=== PATIENT | male | born 1970 | race Caucasian/White ===

== ENCOUNTER → 2017-06-09 | Outpatient (CLI) | payer OTHER | LOC: LAB.O 12:18 | PROVIDERS: ATTEND Nurse Practitioner Family | DX: I10 Essential (primary) hypertension (principal) ==

== ENCOUNTER 2017-10-06 21:31 | Inpatient (IN) | payer OTHER ==
[2017-10-06] MEDS ORDERED: methylPREDNISolone SODIUM SUC 125 MG/2 ML VIAL IV ONE (21:41)
[2017-10-06] MEDS ORDERED: SODIUM CHLORIDE 0.9% 1000ML 1,000 ML IVS ONE (22:29)
[2017-10-06] MEDS ORDERED: HYDROcodone 10MG/APAP 325MG 1 EA TAB PO ONE (22:29)
[2017-10-06] MEDS ORDERED: cefTRIAXone SODIUM 1 GM in SODIUM CHL 0.9% 50ML MIN-BAG+ 50 ML IVPB ONE (23:09)
[2017-10-06] MEDS ORDERED: cefTRIAXone SODIUM 1 GM VIAL ONE (23:22)
[2017-10-06] MEDS ORDERED: SODIUM CHL 0.9% 50ML MIN-BAG+ 50 ML IVPB ONE (23:22)
[2017-10-06] MEDS ORDERED: diphenhydrAMINE HCL 25 MG CAP PO ONE (23:40)
--- NOTE | 2017-10-06 23:50 | ED.PDOC ---
History of Present Illness - General Chief Complaint: Bite: Animal/Insect/Human Stated Complaint: Snake Bite Time Seen by Provider: 10/06/17 21:41 Source: patient Exam Limitations: no limitations - History of Present Illness Initial Comments: the patient is a 47-year-old male presenting to emergency room after having stepped off of his back porch and been bitten by a small snake on the lateral distal aspect of his left foot. There appears to be fang serra present. One on the tip of the toe and 2 on the side of the foot. he arrives approximately 15 minutes after the incident. Marking of the swelling started upon his arrival. No history of any significant allergic reactions to slight bites or bee stings in the past. He did not see what kind of snake it was however upper heads and rattlesnakes are prevalent in this area. Over the next couple of hours swelling has extended to approximately mid foot. No systemic symptoms. No vital sign instability. 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 Timing/Duration: 1/2 hour Severity: moderate Improving Factors: nothing Worsening Factors: nothing Associated Symptoms: denies symptoms Allergies/Adverse Reactions: Allergies NO KNOWN ALLERGY Allergy (Verified 10/06/17 22:13) Review of Systems - Review of Systems Constitutional: States: no symptoms reported EENTM: States: no symptoms reported Respiratory: States: no symptoms reported Cardiology: States: no symptoms reported Gastrointestinal/Abdominal: States: no symptoms reported Genitourinary: States: no symptoms reported Musculoskeletal: States: no symptoms reported Skin: States: see HPI Neurological: States: no symptoms reported Endocrine: States: no symptoms reported All other Systems: No Change from Baseline Past Medical History (General) - Patient Medical History Hx Seizures: No Hx Stroke: No Hx Dementia: No Hx Asthma: No Hx of COPD: No Hx Cardiac Disorders: No Hx Congestive Heart Failure: No Hx Pacemaker: No Hx Hypertension: Yes Hx Thyroid Disease: No Hx Diabetes: No Hx Gastroesophageal Reflux: Yes Hx Renal Disease: No Hx Cancer: No Hx of HIV: No Hx Hepatitis C: No Hx MRSA: No Surgical History: other - Vaccination History Hx Tetanus, Diphtheria Vaccination: No Hx Influenza Vaccination: No Hx Pneumococcal Vaccination: No Immunizations Up to Date: No - Social History Hx Tobacco Use: No Hx Chewing Tobacco Use: Yes Hx Alcohol Use: Yes - Occasional Hx Substance Use: No Hx Substance Use Treatment: No Hx Depression: No Feels Threatened In Home Enviroment: No Feels Threatened In a Relationship: No Hx Physical Abuse: No Hx Emotional Abuse: No Hx Suspected Abuse: No - Activities of Daily Living Hospice Agency (if applicable):: None - Female History Patient is a Female of Child Bearing Age (10 -59 yrs old): No - Triage Comment ED Triage Comment: Pt states that he was biten by unknown snake 20 minutes prior to arrival. He states that he thought it was a "hornet's nest" at first but noticed the two serra leading him to believe it is a snake bite. Family Medical History - Family History Mother Hx Family;Other: Dementia Father Hx Family Congestive Heart Failure: Yes Physical Exam - Physical Exam General Appearance: Alert, No apparent distress Eye Exam: bilateral normal Ears, Nose, Throat: hearing grossly normal, normal ENT inspection, normal pharynx Neck: full range of motion, supple Respiratory: lungs clear, normal breath sounds, no respiratory distress, no accessory muscle use Cardiovascular/Chest: normal peripheral pulses, regular rate, rhythm, no edema Peripheral Pulses: radial,right: 2+, radial,left: 2+, dorsalis pedis,right: 2+, dorsalis pedis,left: 2+ Gastrointestinal/Abdominal: non tender, soft Rectal Exam: deferred Back Exam: no CVA tenderness, no vertebral tenderness Extremity: normal range of motion, no calf tenderness, normal capillary refill, other - see history of present illness. Neurologic: management professional II-XII nml as tested, alert, normal mood/affect, oriented x 3 Skin Exam: normal color - with the exception of erythema at thesnakebite site Comments: Vital Signs - 24 hr 10/06/17 10/06/17 10/06/17 21:59 22:32 23:49 Temperature 97.3 F L 97.8 F Pulse Rate [ 99 H 85 80 Monitor] Respiratory 18 18 18 Rate Blood Pressure 152/97 135/84 140/85 [Left Arm] O2 Sat by Pulse 99 96 99 Oximetry Progress - Progress Progress: 10/06/17 23:55 the patient is a 47-year-old male presenting to the emergency room after having been bitten on the left foot by either a small rattlesnake or a copperhead. The patient has been monitored for almost 3 hours at this point. Swelling has extended to approximately the mid foot. No significant systemic symptoms at this time. Lab work is reassuring initially. Lab work is primarily done for comparison at a later time. The patient has received a dose of Solu-Medrol, hydrocodone, Rocephin and Benadryl. The patient will be admitted for monitoring overnight and continued care. At this time no [employer] has been required. - Results/Orders Results/Orders: Laboratory Results - last 24 hr 10/06/17 10/06/17 10/06/17 21:47 21:47 21:47 WBC 9.9 RBC 5.07 Hgb 14.9 Hct 43.3 MCV 85.4 MCH 29.5 MCHC 34.5 RDW 13.0 Plt Count 211 MPV 8.2 Absolute Neuts (auto) 6.40 Absolute Lymphs (auto) 2.40 Absolute Monos (auto) 0.90 H Absolute Eos (auto) 0.10 Absolute Basos (auto) 0.00 Neutrophils % 64.6 Lymphocytes % 24.7 Monocytes % 8.8 Eosinophils % 1.4 Basophils % 0.5 PT 11.9 INR 1.030 PTT (SP) 30.8 D-Dimer, Quantitative < 230 Sodium 144 Potassium 4.0 Chloride 111 Carbon Dioxide 23 Anion Gap 14.0 BUN 25 H Creatinine 1.11 BUN/Creatinine Ratio 22.5 H Random Glucose 93 Serum Osmolality 290.9 Calcium 9.2 Total Bilirubin 0.4 AST 60 H ALT 65 H Alkaline Phosphatase 55 Creatine Kinase 990 H* CK-MB (CK-2) 8.3 H* CK-MB (CK-2) % 0.84 Troponin I < 0.02 Serum Total Protein 8.2 Albumin 4.4 Globulin 3.8 H Albumin/Globulin Ratio 1.2 - EKG/XRAY/CT CT Ordered: No CT Interpretation Call Back: No Departure - Departure Clinical Impression: Snake envenomation Qualifiers: Encounter type: initial encounter Injury intent: accidental or unintentional Qualified Code(s): T63.001A - Toxic effect of unspecified snake venom, accidental (unintentional), initial encounter Disposition: Admit Patient Decision To Admit - Decistion To Admit Decision to Admit Reason: Medical Nature Decision to Admit Date: 10/06/17 Decision to Admit Time: 23:57
--- NOTE | 2017-10-07 00:45 | HP ---
SUPERVISING PHYSICIAN: Beau Flores MD CHIEF COMPLAINT: Snake bite. HISTORY OF PRESENT ILLNESS: This is a 47-year-old male patient who presented to the Emergency Room about 15 minutes after he had stepped off his porch and was bitten by a small snake on the lateral portion of his distal left foot. There was one fang hoang in the fifth toe and two fang serra just distal to the fifth toe on the lateral portion of the foot. There was some swelling to the area when he got to the Emergency Room. He was given Rocephin, Benadryl and Solu- Medrol as well as some IV fluids. His initial CBC was within normal limits with a platelet count 211. PT was 11.9, INR1.03, PTT 30.8, D-dimer was less than 230. Electrolytes were basically within normal limits with BUN 25, creatinine 1.11. AST 60, ALT 65, alkaline phosphatase 55, creatinine kinase 990 , CK-MB 8.3. His foot was marked for swelling and I was called for hospital admission. PAST MEDICAL HISTORY: 1. Hypertension. 2. Elevated liver function tests. PAST SURGICAL HISTORY: 1. Four knee surgeries. 2. Right shoulder surgery. 3. Septorhinoplasty. OUTPATIENT MEDICATIONS: 1. Lisinopril. 2. Meloxicam. 3. Metoprolol. ALLERGIES: NO KNOWN DRUG ALLERGIES. FAMILY HISTORY: Positive for cardiac problems, strokes and diverticulitis. SOCIAL HISTORY: He does not smoke cigarettes, but he does dip smokeless tobacco. He drinks alcoholic beverages socially. He denies any illicit drug use. REVIEW OF SYSTEMS: GENERAL: Negative for fever, fatigue or weight changes. HEENT: Denies ear pain, vision changes or sore throat. RESPIRATORY: Negative for wheezing, coughing or shortness of breath. CARDIAC: Negative for chest pain, palpitations or tachycardia. GASTROINTESTINAL: Negative for nausea, vomiting, diarrhea, constipation. GENITOURINARY: Negative for hematuria, dysuria or polyuria. MUSCULOSKELETAL: Positive for left foot pain. Negative for back pain or arthralgias. SKIN: As per history of present illness. NEUROLOGIC: Negative for headache, dizziness or seizures. PHYSICAL EXAMINATION: VITAL SIGNS: Afebrile. Heart rate 70. Blood pressure 143/85. Respiratory rate 16. O2 saturation 93% on room air. GENERAL: This is a 47-year-old male patient who is lying in his hospital bed. He is in no acute distress. HEENT: Normocephalic, atraumatic. Pupils are equal and reactive. Oropharynx clear. Oral mucous membranes are moist. NECK: Supple without mass. RESPIRATORY: Essentially clear to auscultation bilaterally. CARDIOVASCULAR: Regular rate and rhythm. GASTROINTESTINAL: Abdomen is soft, nondistended, nontender. Bowel sounds are positive. EXTREMITIES: No cyanosis, clubbing to bilateral lower extremities. His left lower extremity is slightly more edematous than this right leg. There are obvious puncture serra on the distal portion of the fifth toe as well as two puncture serra on the lateral aspect just proximal to the fifth toe on the lateral portion of his foot. The area around the toe is somewhat purple. Erythema extends to the top of the foot. It is marked. There is no erythema to the ankle area or his calf. NEUROLOGIC: Awake, alert and oriented times three. LABORATORY: Subsequent lab this morning shows WBC 4.7 with a slight left shift with neutrophils at 85.9%. The remainder of his CBC is within normal limits. PT 12, INR 0.03, PTT 31.1. Fibrinogen 414. Electrolytes are basically within normal limits with AST 47, ALT 56, alkaline phosphatase 53 with creatinine kinase of 703, CK-MB 6.5. All other labs and films have been reviewed via the EMR. IMPRESSION: 1. Snake bite to the left foot. 2. Dehydration. 3. Hypertension. 4. History of elevated liver function tests. PLAN: We will admit the patient to the hospital. He will elevate his left foot above his heart. I will also have them hoang and measure every 4 hours across the top of the foot, at the ankle and around the calf of his left leg. I will also do serial CMPs, CBCs, fibrinogen, coags, CPKs and CK-MBs. I have consulted Dr. Anaya. We will continue to monitor the patient closely and follow as needed. Dr. Flores is the collaborating physician and available for consultation. #[id number] [facility]
[2017-10-07] MEDS ORDERED: SODIUM CHLORIDE 0.9% (FLUSH) 10 ML SYG IV PRN (01:13)
[2017-10-07] MEDS ORDERED: IV SET AND CAP CHANGE INJ INJ SCH (01:30)
[2017-10-07] MEDS ORDERED: PANTOPRAZOLE SODIUM IV 40 MG VIAL IV SCH (01:30)
[2017-10-07] MEDS: SODIUM CHLORIDE 0.45% 1000ML 1,000 ML IVS PRN ×2 (01:36→14:56)
[2017-10-07] MEDS ORDERED: SODIUM CHLORIDE 0.9% (FLUSH) 10 ML SYG IV SCH (09:00)
[2017-10-07] MEDS: HYDROcodone 5MG/APAP 325MG 1 EA TAB PO PRN (18:07)
[2017-10-07] MEDS ORDERED: PANTOPRAZOLE SODIUM TAB 40 MG PO ONE (19:42)
[2017-10-08] MEDS: HYDROcodone 5MG/APAP 325MG 1 EA TAB PO PRN (01:15)
[2017-10-08] MEDS: SODIUM CHLORIDE 0.45% 1000ML 1,000 ML IVS PRN (03:18)
[2017-10-08 05:48] VITALS: O2SAT 97
[2017-10-08] MEDS ORDERED: PANTOPRAZOLE SODIUM TAB 40 MG PO SCH (06:30)
[2017-10-08] MEDS ORDERED: traMADol HCL 50 MG TAB PO PRN (08:23)
--- NOTE | 2017-10-08 09:32 | US ---
EXAM DESCRIPTION: Venous,Lower Extremity LT: ULTRASOUND. CLINICAL HISTORY: snakebite. Swelling left lower extremity. COMPARISON: None Available. TECHNIQUE: Two -dimensional and doppler sonographic evaluation of the deep venous system of the left lower extremity. FINDINGS: Doppler evaluation shows normal color flow and normal phasicity and augmentation of the left common femoral vein, femoral vein, popliteal vein, greater/lesser saphenous vein, peroneal, and posterior tibial vein. The left lower extremity deep veins showed normal occlusion with transducer pressure. Two-dimensional survey showed no echogenic thrombus within these veins. IMPRESSION: 1. Duplex ultrasound evaluation of the left lower extremity deep venous system showing no evidence of thrombosis or embolism. Electronically signed by: León Barone MD 10/08/2017 9:30 AM CDT
[2017-10-08 10:07] VITALS: BP 145/88; TEMP 98.8
--- NOTE | 2017-10-08 13:28 | DS ---
SUPERVISING PHYSICIAN: Beau Flores MD DISCHARGE DIAGNOSIS: 1. Snake bite to the left foot. 2. Dehydration. 3. Hypertension. 4. History of elevated liver function tests. HISTORY OF PRESENT ILLNESS: This is a 47-year-old male patient who presented to the Emergency Room about 15 minutes after he had stepped off his porch and was bitten by a small snake on the lateral portion of his distal left foot. There was one fang hoang on the fifth toe and two fang serra just proximal to the fifth toe on the lateral portion of the foot. There was some swelling to the area. In the Emergency Room, he was given Rocephin, Benadryl and Solu-Medrol as well as some IV fluids. His initial CBC was within normal limits with a platelet count 211. PT was 11.9, INR 1.03, PTT 30.8, D-dimer was less than 230. Electrolytes were basically within normal limits with BUN 25, creatinine 1.11. AST 60, ALT 65, alkaline phosphatase 55, creatinine kinase 990, CK-MB 8.3. He had been working out in the heat for the prior three days, moving dirt in his yard. He had some swelling to his distal lateral left foot and was admitted to the hospital. HOSPITAL COURSE: The patient's vital signs remained stable. Dr. Anaya was consulted and examined the patient. He had some swelling and erythema that progressed up to his midfoot. He did have mild swelling that progressed up to his calf area. The largest difference in both calfs was approximately 3 cm. His WBCs were as low at 4.7 and as high as 12.9, but on discharge was 8.8. Platelet counts were all within normal range with his lowest being 156 and the highest 211. His PT, INR and PTT were all within normal limits with his INR today being 0.95. Fibrinogen was 414 on admission and 292 today. Creatinine kinase was 338 this morning and CK-MB was 5.5. Liver functions were within normal limits today. The swelling has diminished in the last 12 hours. He has had minimal amounts of pain even with ambulating. He has required a few oral [place] for pain relief, but at this time his pain is 1/10. He did complain of a "knot" in his left leg this morning. A venous Doppler was done of his left lower leg and was negative for any DVT. He will be discharged home today. DISCHARGE PLAN: The patient will be discharged home in stable condition. He is to resume his previous diet. I have limited his activity and work until he sees Dr. Anaya on 10/12/17, at 10:30 AM. He also has a followup with his primary care provider, Israel Alexander, on 10/14/17 at 10:30 AM. He is to resume his home medications. I have also given him a prescription for tramadol. He is to elevate his left leg above his heart level as much as possible. He is to return to the hospital or followup with Dr. Anaya or Israel Alexander for any further problems or complications. DISCHARGE MEDICATIONS: 1. Metoprolol. 2. Lisinopril. 3. Mobic. 4. Tramadol. #[id number] [facility]
== END 2017-10-08 10:57 | disposition home or self-care (01) | DRG 918 ==
LOC: ER 21:31 → OBSVTOIN 10-07 00:44 → MS 10-07 00:44
PROVIDERS: ADMIT Nurse Practitioner Acute Care; ATTEND Nurse Practitioner Acute Care
DX: T63.001A Toxic effect of unspecified snake venom, accidental (unintentional), initial encounter (principal); E86.0 Dehydration; K21.9 Gastro-esophageal reflux disease without esophagitis; I10 Essential (primary) hypertension; F17.220 Nicotine dependence, chewing tobacco, uncomplicated; Y92.008 Other place in unspecified non-institutional (private) residence as the place of occurrence of the external cause; Z79.1 Long term (current) use of non-steroidal anti-inflammatories (NSAID); Z79.899 Other long term (current) drug therapy